=== PATIENT | male | born 1990 | race Caucasian/White ===

== ENCOUNTER 2018-06-29 07:50 | Inpatient (IN) ==
[2018-06-29] MEDS ORDERED: traZODone 50 MG TABLET PO PRN (08:11)
[2018-06-29] MEDS ORDERED: hydrOXYzine pamoate 25 MG CAPSULE PO PRN (08:11)
[2018-06-29] MEDS ORDERED: Haloperidol Lactate 5 MG/ML VIAL IM PRN (08:11)
[2018-06-29] MEDS ORDERED: Nicotine 2 MG GUM BC PRN (08:11)
[2018-06-29] MEDS ORDERED: *HR* LORazepam 2 MG/ML VIAL IM PRN (08:11)
[2018-06-29] MEDS ORDERED: *HR* LORazepam 1 MG TABLET PO PRN (08:11)
[2018-06-29] MEDS ORDERED: Mag Hydrox/Al Hydrox/Simeth 30 ML UDC PO PRN (08:11)
[2018-06-29] MEDS ORDERED: MOM Conc 10 ML UD.LIQ PO PRN (08:11)
--- NOTE | 2018-06-29 11:10 | Psychiatry History & Physical ---
Date of Encounter: 06/29/18 Time of Encounter: 07:45 History of Present Illness Patient Stated Chief Complaint: "i tried to kill myself" Medicare Admission Attestation: For traditional Medicare patients the provided hospital inpatient services are reasonable and necessary and in the case of services not specified as inpatient-only under 42 CFR 419.22 (n), that they are appropriately provided as inpatient services in accordance 42 CFR 412.3. For Critical Access Hospital the patient may reasonably be expected to be discharged or transferred to a hospital within 96 hours after admission to the Critical Access Hospital. Admitted From: Direct Admit Plans for Post Hospital Care: Home History of Present Illness: Mr. Bowden is a 28 year old male who attempted to kill himself by cutting ve rtically along his arm. He required 10 alex. He reprots sad mood, decreased interests, feelings of guilt and worthlessness. He also reports periods of anger and irritability as well as seeing his brother. He continues to feel very depressed and hopeless and wishes he had succeeded in killing himself. Past Med Surg Social Fam HX - Past Medical History Medical history: other - Past Psychiatric History Psychiatric history: Reports: bipolar, depression, prior suicide attempt, previ ous psychiatric hospitalization Past psychiatric history details: Reports prior psych hospitalization as well as suicide attempts. Been ried on numerous medications, zoloft, lexapro, celexa, depakote, wellbutrin, seroquel. Family psychiatric history: Yes Family Psychiatric History Details: depression and substance use. Family History of Suicide: None - Past Surgical History Surgical History: hip replacement - Social History Smoking Status: Current every day smoker Packs per day: 1 Smokeless Tobacco Status: Yes Alcohol use: none Drug use: marijuana Occupational status: unemployed Current living situation: Home Activity Level: Independent ambulation Recent Out of Country Travel Within the Last 8 Weeks: No Exposure or Possible Exposure to Illness During Travel: No Additional social history: lives with nd her 4 children. Unemployed. - Family History Father Adopted: [employer]: [place] Age: 52 Living Status: Still Living Hx Family Cardiac Disorders: Yes Hx Family Respiratory Disorders: No Hx Family Cancer: No Hx Family GI Disorders: No Hx Family Genitourinary Disorders: No Hx Family Endocrine Disorder: No Hx Family Musculoskeletal Disorders: No Hx Family Neuromuscular Disorders: No Hx Family Neurologic Disorders: No Hx Family HEENT Disorders: No Hx Family Autoimmune Disorders: No Hx Family Reproductive Disorders: No Hx Family Psychosocial Disorders: No Hx Family Medical Disorders: No Medications & Allergies DULoxetine [Cymbalta] 10 mg PO DAILY 06/29/18 [History] Gabapentin [Neurontin] 300 mg PO TID 06/29/18 [History] Ibuprofen [Ibu-200] 800 mg PO DAILY PRN 06/29/18 [History] Tizanidine HCl 4 mg PO DAILY 06/29/18 [History] Allergy/AdvReac Type Severity Reaction Status Date / Time No Known Allergies Allergy Verified 06/29/18 11:03 Review of Systems Constitutional: Denies: fever Eyes: Denies: eye pain Ears, Nose, Throat: Denies: ear pain Cardiovascular: Denies: chest pain Respiratory: Denies: cough Gastrointestinal: Denies: abdominal pain Genitourinary male: Denies: urgency Musculoskeletal: Denies: back pain Integumentary: Denies: rash Neurological: Reports: headache, weakness Psychiatric: Reports: depression, suicidal ideation, change in appetite, visual hallucinations, difficulty concentrating, hopelessness, irritability, mood swings Endocrine: Reports: fatigue Hematologic/Lymphatic: Denies: easy bleeding Allergic/Immunologic: Denies: facial swelling Exam - HEENT Head exam IM: Present: atraumatic Eye exam IM: Present: normal appearance ENT exam IM: Present: mucous membranes moist - Neurological Neurological exam: Present: CN II-XII intact - Respiratory Respiratory exam IM: Absent: respiratory distress - GI/Abdominal GI/Abdominal exam IM: Present: no peritoneal signs - Extremities Extremities exam IM: Present: full ROM - Skin Skin exam IM: Present: abrasion (covered sutures on arm) - Constitutional Vitals: Temp Pulse Resp BP Pulse Ox 97.4 F L 64 14 116/76 97 06/29/18 09:00 06/29/18 09:00 06/29/18 09:00 06/29/18 09:00 06/29/18 09:00 General appearance: age & developmentally appropriate, disheveled - Musculoskeletal Gait: slow Station: relaxed Strength & Tone: normal for patient - Psychiatric Patient Orientation: Yes Person, Yes Time, Yes Place Level of alertness: Alert Behavior: tearful Psychomotor activity: Slowed Eye Contact: Minimal Contact Mood Description: Depressed Patient description of mood: sad Affect description: dysphoric Speech Volume: Soft/Quiet Speech pattern: normal rhythm Language & Vocabulary: consistent with education Thought Process: Logical Thought Content: Yes Suicidal ideation, Yes Homicidal ideation, Yes Thought insertion Perceptual Disturbances: No Auditory hallucinations Attention Span Ability: Capable of Focused Attention Memory Description: Grossly Intact Patient Reliability: Reliable Historian Fund of knowledge: Yes abstraction ability Intelligence Estimate: Average Judgment: Limited Insight: Minimal Assessment and Plan (1) Mood disorder Current visit: Yes Status: Acute Plan: Admit inpatient for safety and stabilization, Close observation, Suicide Precautions per unit protocol, Encourage participation in unit milieu, Group Therapy, Monitor sleep, Monitor appetite Additional Plan: currently depressed r/o bipolar II. Will increase Cymbalta to 30 and add remeron 7.5mg hs depression. Monitor for hypomania. Encourage groups. AIMS 0. Supportive therapy. Risks, benefits, side effects, alternatives discussed w/pt: Yes Patient ag reeable to treatment: Yes Plans for Post Hospital Care: Home Estimated Length of Stay (Days): 4
[2018-06-29] MEDS: Ibuprofen 400 MG TABLET PO PRN ×2 (11:26→21:04)
[2018-06-29] MEDS ORDERED: tiZANidine 4 MG TABLET PO SCH (21:00)
[2018-06-29] MEDS ORDERED: Mirtazapine 15 MG TABLET PO SCH (21:00)
[2018-06-29] MEDS: Gabapentin 300 MG CAPSULE PO SCH (21:02)
[2018-06-30] MEDS: Gabapentin 300 MG CAPSULE PO SCH (09:08)
[2018-06-30] MEDS: Ibuprofen 400 MG TABLET PO PRN (09:09)
[2018-06-30 09:48] VITALS: BP 114/76
--- NOTE | 2018-06-30 20:21 | Discharge Summary ---
Date of Encounter: 06/30/18 Time of Encounter: 20:07 Diagnosis - Discharge Diagnosis (1) Mood disorder Status: Acute Medications - Discharge Medications Gabapentin [Neurontin] 300 mg PO TID 06/29/18 [History] Ibuprofen [Ibu-200] 800 mg PO DAILY PRN 06/29/18 [History] Tizanidine HCl 4 mg PO DAILY 06/29/18 [History] DULoxetine [Cymbalta] 30 mg PO DAILY 06/30/18 [History] Allergy/AdvReac Type Severity Reaction Status Date / Time No Known Allergies Allergy Verified 06/29/18 11:03 Provider Date of admission: 06/29/18 07:50 Primary care physician: PCP NONE Discharging clinician: Vane Stanley Psychiatry Exam - Constitutional Vitals: Temp Pulse Resp BP Pulse Ox 97.8 F 68 18 114/76 99 06/30/18 09:00 06/30/18 09:00 06/30/18 09:00 06/30/18 09:00 06/30/18 09:00 General appearance: age & developmentally appropriate, well-groomed, well- nourished - Musculoskeletal Gait: normal Station: relaxed Strength & Tone: normal for patient - Psychiatric Patient Orientation: Yes Person, Yes Time, Yes Place Level of alertness: Alert Behavior: calm, cooperative Psychomotor activity: Normal Eye Contact: Maintains Eye Contact Mood Description: Depressed Affect description: full range Speech Volume: Normal Speech pattern: normal rate, normal rhythm, normal tone, fluent, spontaneous Language & Vocabulary: consistent with education Thought Process: Linear, Goal Oriented Thought Content: No Suicidal ideation, No Homicidal ideation, No Overt delusions Perceptual Disturbances: No Auditory hallucinations, No Visual hallucinations Attention Span Ability: Capable of Focused Attention Memory Description: Grossly Intact Patient Reliability: Reliable Historian Fund of knowledge: Yes abstraction ability, Yes aware of current events Intelligence Estimate: Average Judgment: Limited Insight: Partial Hospital Course Hospital course: Mr. Bowden is a 28 year old male who was admitted following a suicide attempt by cutting himself on his arm. Client reported multiple stressors including the loss of his brother to a car accident and the loss of his sister to a drug overdose. Client admitted to a history of SI but denied any prior attempts. Reported he had been on meds in the past with positive results. Also reported prior benefit from group therapies. Started on Cymbalta a week prior to admissi on and client stated he felt it starting to work while in the hospital. Low dose Remeron was also added while he was inpatient with positive results. On eval today client is denying any further SI, intent, or plan. He is bright, reactive, and future oriented. States he spent yesterday reading about mental illness and asking questions. Feels better about his future. Recognizes people care about him. Has support from his and her children. Spoke with his who reported comfort having him come home provided he follows up with outpatient treatment. Client endorsed wanting a psychiatrist and to restart group therapy. Admitted he did not get much from 1:1 therapy but liked and benefitted from group interactions in the past. On the unit he was pleasant and engaged well with staff and his peers. Redig stable for discharge. Total time spent with client greater than 30 minutes. Patient was educated of his diagnosis and the risks, benefits, and side effects of this treatment and alternative treatment options and was monitored for responsiveness and side effects. Mood, anxiety, sleep, appetite, and interest improved, as did future orientation. Self-harm thoughts subsided, thinking cleared, psychosis resolved, and mood stabilized. Patient was able to attend both individual and group therapy sessions as well as meeting with the psychiatrist daily and urged to discuss any medication or treatment issues or other concerns. The patient was educated primarily by verbal means about their diagnosis and manifestations in their life. The option for treatment including group and individual therapy programming was offered to the patient in the use of medications with all their potential risks, benefits, and side effects were discussed with the patient at length. The patient was given the opportunity to ask questions and was noted to participate in the treatment in the planning process. The patient felt ready and eager to be discharged from the inpatient psychiatric unit to continue on with treatment as an outpatient. The patient agreed that he is safe for this disposition. The patient was considered to be able to participate in informed consent and decision making with respect to medical, legal, and financial issues of the time of discharge. At the time of discharge the patient adamantly denied any concerns for lethality including suicidal or homicidal thoughts ideations or plans and was future oriented toward ongoing mental health care, medical follow-up and sobriety. - Time Spent with Patient Total time spent providing and/or coordinating discharge services: Assessment and Plan - Patient/Caregiver Discharge Instructions Activity: resume usual activities as tolerated Diet: regular diet - Follow up Plan Follow up with: Dr. Gogo Palacios M.D. [Other] (Please contact the office at the number above and follow up with your primary care provider as needed. Please keep your primary care provider informed of any changes in your medications or medical conditions. ) [facility] [Outside] ([facility] conducts first- time appointments for intakes on a walk-in basis. You may go there anytime between 8:00 AM to 4:00 PM Saturday through Saturday to be seen. Please let them know that you are a new client and need to get established for counseling and medication management. Please bring a photo ID, a copy of your insurance card, and a copy of your discharge paperwork from the hospital with you to this appointment.) Functional capacity at discharge: independent ambulation Overall status at discharge: Stable Disposition: Home, Self-Care Quality - Multiple Antipsychotics Patient discharged on 2 or more antipsychotic medications: No Procedures - Procedures Procedures: Medication Management, Crisis Stabilization, Supportive Therapy, Group Therapy
== END 2018-06-30 11:56 | disposition home or self-care (01) | DRG 753 ==
LOC: 1ANU 07:50
PROVIDERS: ADMIT Psychiatry & Neurology Psychiatry; ATTEND Psychiatry & Neurology Psychiatry